=== PATIENT | female | born 1940 | race Caucasian/White ===

== ENCOUNTER 2016-03-24 08:31 | Day surgery (SDC) | payer MEDICARE, BC ==
[~2016-03-24 08:31] MED LIST: RINGERS SOLUTION,LACTATED 1,000 ML IV PRN; ceFAZolin SODIUM 2 GM in DEXTROSE 5 % IN WATER 50 ML IV PRN
--- OUTSIDE RECORDS SUMMARY | 2016-03-24 08:36 | XMS REPORT | Summary of Care ---
:1940 Author Organization [facility] Care Team Providers Name Role Phone Sarah Desai Primary Care Physician Encounter 12/18/15 - 12/18/[address] Gaye Foreman , Dir. Lab: [phone] [place] [address]- Final: Right upper quadrant pain Discharge Disposition: Home Attending Physician: Torri Araujo MD Admitting Physician: Torri Araujo MD Referring Physician: Self, Referral Vital Signs No data available for this section Problem List No data available for this section Allergies, Adverse Reactions, Alerts No data available for this section Medications No data available for this section Results No data available for this section Immunizations No data available for this section Procedures No data available for this section Social History No data available for this section Assessment and Plan No data available for this section
--- OUTSIDE RECORDS SUMMARY | 2016-03-24 08:36 | XMS REPORT | Continuity of Care Document ---
:1940 Author Organization [facility] ([facility]) Address [address] [place] [address] Phone [phone] Care Team Providers Name Role Phone Provider, No-Primary Care Primary Care Provider Unavailable Source Comments This disclosure is being made pursuant to the Care Everywhere program, applicable federal and state laws, and may not contain all informaitonavailable regarding this patient.[facility] ([facility]) Active Allergies and Adverse Reactions Allergen Noted Date Severity Reactions Comments Sulfa (Sulfonamide Antibiotics) 03/19/2016 OTHER Current Medications Prescription Sig. Disp. Refills Start Date End Date Status amLODIPine 10 mg tablet Take 10 mg by 3 01/03/2016 Active mouth daily. lisinopril 10 mg tablet Take 10 mg by 3 02/26/2016 Active mouth daily. pravastatin 40 mg tablet TK 1 T PO ONCE QD 5 03/16/2016 Active X 30 DAYS aspirin 81 mg EC tablet Take 81 mg by Active mouth daily. omeprazole (PRILOSEC) 20 Take 20 mg by Active mg enteric coated capsule mouth daily. omega-3 fatty Take 1,000 mg by Active acids-vitamin E (FISH OIL) mouth daily. 1,000 mg capsule MULTIVITAMIN/IRON/FOLIC Active ACID (COMPLETE WOMEN PO) calcium carbonate (500 mg Take 1 tablet by Active Ca) 1250 mg -vitamin D 200 mouth 2 times unit per tablet daily. 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 Hypercholesterolemia 03/19/2016 Hypertension 03/19/2016 GERD (gastroesophageal reflux disease) 03/19/2016 Most Recent Encounters Date Type Specialty Providers Description 03/19/2016 Office Visit Med Hematology and Keyanna, Ashwin E, MD Dx: [place] cell Oncology carcinoma (Primary Dx) 03/19/2016 Hospital Encounter Radiology Mal Leon MD Dx: Juancarlos cell carcinoma (Primary Dx) 03/18/2016 Telephone Radiology Carlos Molina RN 03/11[facility]: Juancarlos cell VALENTINA Briceño carcinoma (Primary Dx) 03/08/2016 Orders/Notes Cancer Center Gemma Morales RN 03/04/2016 Telephone Srg Oncology Yo Mathur Chief Comp: J Referral 03/02/2016 Lab Requisition Pathology [facility] Dx: Dermatitis Immunizations Name Dates Previously Given Next Due Influenza, unspecified 12/21/2004 Social History Tobacco Use Types Packs/Day Years Used Date Never Smoker Smokeless Tobacco: Never Used Alcohol Use Drinks/Week oz/Week Comments No Last Filed Vital Signs Vital Sign Reading Time Taken Blood Pressure 130/60 03/19/2016 1:16 PM [employer] Pulse 74 03/19/2016 1:16 PM [employer] Temperature 37 C (98.6 F) 03/19/2016 1:16 PM [employer]ER Respiratory Rate 16 03/19/2016 1:16 PM [employer] Height 1.65 m (5' 4.96") 03/19/2016 9:00 AM GRAIN E[employer] WORKER Weight 76.7 kg (169 lb 1.5 oz) 03/19/2016 1:16 PM G[employer] WORK[employer] Body Mass Index 28.17 03/19/2016 1:16 PM [employer] WORKER Oxygen Saturation 97% 03/19/2016 1:16 PM [employer] WORKER Plan of Care Date Type Specialty Providers Description 04/01/2016 Appointment Radiology Chief Comp: Patient Reported Reason For Visit 04/01/2016 Appointment Srg Oncology Allen Pham MD Chief Comp: Patient [address] [place] [address] [phone] (Fax) Health Maintenance Due Date Last Done Comments Hepatitis B Vaccine (1 of 3 - Primary Series) 1940 Tdap Vaccine 10/11/1951 Lipid Disorder Screening 1958 Td Vaccine 1958 Mammogram 1980 Colonoscopy 1990 Zoster Vaccine 2000 Osteoporosis Screening (DXA Bone Density) 2005 Pneumococcal Vaccine (1 of 2 - PCV13) 2005 Influenza Vaccine: Seasonal (#1) 09/08/2015 12/21/2004 Results from Last 3 Months DIFFERENTIAL (03/19/2016 1:29 PM) Component Value Range % Neutrophils-Auto Diff 59.4 % Neutrophils-Auto Diff 4160 9918-9592 /MM3 % Lymphocytes-Auto Diff 35.0 % Lymphocytes-Auto Diff 2450 875-3300 /MM3 % Monocytes-Auto Diff 4.0 % Monocytes-Auto Diff 280 130-860 /MM3 % Eosinophils-Auto Diff 0.6 % Eosinophils-Auto Diff 40 40-390 /MM3 % Basophils 0.9 % Basophils-Auto Diff 60 10-136 /MM3 % Immature Granulocytes-Auto Diff 0.1 % Immature Granulocytes-Auto Diff 10 /MM3 Specimen Whole Blood CBC (COMPLETE BLOOD COUNT) (03/19/2016 1:29 PM) Component Value Range WBC Count 7.0 3.7-10.5 K/MM3 RBC Count 4.36 4.00-5.20 M/MM3 Hemoglobin 13.3 11.9-15.5 g/dL Hematocrit 40 35-47 % MCV (Mean Corpuscular Volume) 91 82-99 FL MCH (Mean Corpuscular Hemoglobin) 31 25-35 PG MCHC (Mean Corpuscular Hemoglobin Concentration) 34 32-36 % Platelet Count 264 150-400 K/MM3 MPV (Mean Platelet Volume) 10.1 9.4-12.3 FL RBC Dist Width-STD 42.7 36.4-46.3 FL RBC Distrib Width 12.9 9.0-14.5 % Nucleated RBC 0 /100 WBC Specimen Whole Blood COMPREHENSIVE METABOLIC PANEL (CMP) (03/19/2016 1:29 PM) Component Value Range Sodium 140 135-145 mEq/L Potassium 4.0 3.5-5.0 mEq/L Chloride 101 95-107 mEq/L CO2 27 22-29 mEq/L Anion Gap 12 8-18 mEq/L BUN 19 10-20 mg/dL Creatinine 0.7Comment: 0.5-1.0 mg/dL Creatinine switched to enzymatic method on 06/16/2010.GFR equation switched to IDMS-traceable MDRD equation on 06/16/2010. Calculated GFR values are not valid in clinical settings where serum creatinine is changing. Glucose 141(H)Comment: 65-99 mg/dL The Expert Committee on the Diagnosis and Classification of Diabetes has defined impaired fasting glucose as greater than or equal to 100 mg/dL but less than 126 mg/dL.(Diabetes Care 28 (Suppl 1)S41,2005) Calcium 10.0 8.5-10.5 mg/dL Total Protein 7.4 6.0-8.0 g/dL Albumin 4.2 3.4-4.8 g/dL AST 22Comment: 0-32 U/L Adult reference ranges updated on 01/02/13 at 830am ALP 85 35-104 U/L Bilirubin Total 0.3 <=1.2 mg/dL ALT 24Comment: 0-33 U/L The upper limit of normal for alanine aminotransferase (ALT) reference ranges for adults is controversial with some authorities recommending limit as low as 30 U/L for males and 19 U/L for females. Th ere is increased incidence of subclinical liver disease (e.g., early steatohepatitis) in patients with ALT values in the range of 31-41 U/L for males and 20-33 U/L for females. ALT values should alway s be interpreted in conjunction with clinical history, physical examination findings, and, if applicable, data from other diagnostic tests. Calculated GFR 82 >60 mL/min/1.73 m2 Specimen Blood CHLORIDE (03/19/2016 1:29 PM) Component Value Range Chloride 101 95-107 mEq/L Specimen Blood BLOOD UREA NITROGEN (03/19/2016 1:29 PM) Component Value Range BUN 19 10-20 mg/dL Specimen Blood ASPARTATE AMINOTRANSFERASE (03/19/2016 1:29 PM) Component Value Range AST 22Comment: 0-32 U/L Adult reference ranges updated on 01/02/13 at 830am Specimen Blood ALANINE AMINOTRANSFERASE (03/19/2016 1:29 PM) Component Value Range ALT 24Comment: 0-33 U/L The upper limit of normal for alanine aminotransferase (ALT) reference ranges for adults is controversial with some authorities recommending limit as low as 30 U/L for males and 19 U/L for females. Th ere is increased incidence of subclinical liver disease (e.g., early steatohepatitis) in patients with ALT values in the range of 31-41 U/L for males and 20-33 U/L for females. ALT values should alway s be interpreted in conjunction with clinical history, physical examination findings, and, if applicable, data from other diagnostic tests. Specimen Blood SODIUM (03/19/2016 1:29 PM) Component Value Range Sodium 140 135-145 mEq/L Specimen Blood TOTAL PROTEIN (03/19/2016 1:29 PM) Component Value Range Total Protein 7.4 6.0-8.0 g/dL Specimen Blood POTASSIUM (03/19/2016 1:29 PM) Component Value Range Potassium 4.0 3.5-5.0 mEq/L Specimen Blood ALKALINE PHOSPHATASE (03/19/2016 1:29 PM) Component Value Range ALP 85 35-104 U/L Specimen Blood CREATININE (03/19/2016 1:29 PM) Component Value Range Creatinine 0.7Comment: 0.5-1.0 mg/dL Creatinine switched to enzymatic method on 06/16/2010.GFR equation switched to IDMS-traceable MDRD equation on 06/16/2010. Calculated GFR values are not valid in clinical settings where serum creatinine is changing. Creatinine switched to enzymatic method on 06/16/2010.GFR equation switched to IDMS-traceable MDRD equation on 06/16/2010. Calculated GFR values are not valid in clinical settings where serum creatinine is changing. Calculated GFR 82 >60 mL/min/1.73 m2 Specimen Blood CO2 (03/19/2016 1:29 PM) Component Value Range CO2 27 22-29 mEq/L Anion Gap 12 8-18 mEq/L Specimen Blood CALCIUM (03/19/2016 1:29 PM) Component Value Range Calcium 10.0 8.5-10.5 mg/dL Specimen Blood BILIRUBIN, TOTAL (03/19/2016 1:29 PM) Component Value Range Bilirubin Total 0.3 <=1.2 mg/dL Specimen Blood ALBUMIN (03/19/2016 1:29 PM) Component Value Range Albumin 4.2 3.4-4.8 g/dL Specimen Blood CBC WITH DIFFERENTIAL (03/19/2016 1:29 PM) Specimen Whole Blood Narrative The following orders were created for panel order CBC WITH DIFFERENTIAL. Procedure Abnormality Status --------- ------ CBC (COMPLETE BLOOD COUNT)[[id number]] Final result DIFFERENTIAL[[id number]] Final result Please view results for these tests on the individual orders. PET / CT F-18 FDG TUMOR W BODY (40200) (03/19/2016 12:23 PM) Impressions Impression: 1. No evidence of metastasis. 2. Bilateral thyroid nodules with increased FDG uptake in the left thyroid. This can be further evaluated with thyroid ultrasound. Narrative Procedure:PET / CT F-18 FDG TUMOR W BODY (91094) Indication: New Juancarlos cell carcinoma.. Radiopharmaceutical and other administered agents: 1. F-18 Fluorodeoxyglucose (FDG) 11.08 mCi IV in left antecubital fossa at 1029 hrs. 2. Total of 500 mL of dilute oral contrast was administered. 3. Alprazolam 0.25 mg PO given at 0900 hrs. Technique: Study performed in fasting state with baseline blood glucose of 88 mg/dl. Images from skull vertex to toes were acquired on a Siemens CrowdCompassgraph PET-CT with PET imaging in 3-D mode. CT was performed for attenuation correction and anatomic correlation. Reconstructed PET, CT, and fused PET-CT images were reviewed on computer monitor in coronal, sagittal, and transverse planes. FDG uptake period was 82 min. Comparison: None. Findings: Neck: Bilateral thyroid nodules with mild FDG uptake in the left thyroid with SUV max 4.7. No hypermetabolic lymphadenopathy in the neck. Chest: No concerning lung nodules. Calcified granuloma in the right lower lobe. No hypermetabolic mediastinal or axillary lymphadenopathy. Abdomen-pelvis: No hypermetabolic lesions in the liver, spleen, adrenal glands or elsewhere in the abdomen or pelvis. Small benign-appearing inguinal nodes with low-level FDG uptake bilaterally. Bones and extremities: No hypermetabolic lesions. Procedure Note Wilman, Incoming Imaging Results - Sat Mar 20, 2016 10:40 AM GRAIN E[employer] WORKER Procedure:PET / CT F-18 FDG TUMOR W BODY ([id number]) Indication: New Juancarlos cell carcinoma.. Radiopharmaceutical and other administered agents: 1. F-18 Fluorodeoxyglucose (FDG) 11.08 mCi IV in left antecubital fossa at 1029 hrs. 2. Total of 500 mL of dilute oral contrast was administered. 3. Alprazolam 0.25 mg PO given at 0900 hrs. Technique: Study performed in fasting state with baseline blood glucose of 88 mg/dl. Images from skull vertex to toes were acquired on a Siemens CrowdCompassgraph PET-CT with PET imaging in 3-D mode. CT was performed for attenuation correction and anatomic correlation. Reconstructed PET, CT, and fused PET-CT images were reviewed on computer monitor in coronal, sagittal, and transverse planes. FDG uptake period was 82 min. Comparison: None. Findings: Neck: Bilateral thyroid nodules with mild FDG uptake in the left thyroid with SUV max 4.7. No hypermetabolic lymphadenopathy in the neck. Chest: No concerning lung nodules. Calcified granuloma in the right lower lobe. No hypermetabolic mediastinal or axillary lymphadenopathy. Abdomen-pelvis: No hypermetabolic lesions in the liver, spleen, adrenal glands or elsewhere in the abdomen or pelvis. Small benign-appearing inguinal nodes with low-level FDG uptake bilaterally. Bones and extremities: No hypermetabolic lesions. IMPRESSION Impression: 1. No evidence of metastasis. 2. Bilateral thyroid nodules with increased FDG uptake in the left thyroid. This can be further evaluated with thyroid ultrasound. BLOOD GLUCOSE, BEDSIDE (03/19/2016 9:44 AM) Component Value Range Glucose, Accu-Chek 88 65-99 mg/dL Specimen Blood, capillary DERMATOPATHOLOGY EXAM (02/27/2016 9:00 AM) Component Value Range Case Report Surgical Pathology Case: [id number] Authorizing Provider:[facility], [facility] Collected: 02/27/2016 09:00 AM Pathologist: Angely Patterson MD Received:03/02/2016 09:43 AM Specimen:Skin, other, specify, L thigh Diagnosis Skin, left thigh, punch biopsy: Juancarlos cell carcinoma. I have personally reviewed this case and edited the report as necessary. Internal Consultation This case was seen in consultation with Dr. Rivera. Clinical Information Tissue source/site: Skin punch - L thigh. Pertinent clinical history and findings: 1.4 cm thickened nodule. Clinical differential diagnosis: Panniculitis vs G.A. Gross Description A.Received in formalin, in a container labeled Cristel Chan, date of , and "L thigh", is a 0.4 cm in diameter x 0.7 cm in length [place] punch biopsy.The specimen is inked, bisected and submitted entirely in A1. ATC/tkr Microscopic Description Sections of a punch biopsy show a deep dermal proliferation of reticulated islands of cells with markedly enlarged nuclei with multiple small nucleoli and inconspicuous cytoplasm. The neoplastic cells show perinuclear dot-llike staining with pankeratin, CD45 immunostain is negative. Margins are involved. Performed by:MARY CARMEN Hart, R2/tkr Immunology IHC: All controls show appropriate reactivity. This test was developed and its performance characteristics determined by the immunopathology Laboratory at the [facility]. It has not been cleared or approved by the [place] Food and Drug Administration.FDA does not require this test to go through premarket FDA review.This test is used for clinical purposes.It should not be regarded as investigational or fo r research. This laboratory is certified under the Clinical Laboratory Improvement Amendments (CLIA) as qualified to perform high complexity clinical laboratory testing. Specimen Skin - Skin, other, specify
[2016-03-24] MEDS ORDERED: RINGERS SOLUTION,LACTATED 1,000 ML IV ONE ×2 (09:20→10:50)
[2016-03-24] MEDS ORDERED: MUPIROCIN 22 APPL TUBE TP ONE ×2 (10:50→12:16)
[2016-03-24] MEDS ORDERED: BUPIVACAINE HCL/EPINEPHRINE 50 ML VIAL IJ ONE ×2 (10:50→12:16)
[2016-03-24] MEDS ORDERED: oxyCODONE HCL/ACETAMINOPHEN 1 TAB TABLET PO PRN (12:57)
[2016-03-24] MEDS ORDERED: MORPHINE SULFATE 2 MG/ML DISP.SYRIN IV PRN (12:58)
[2016-03-24] MEDS ORDERED: BISACODYL 5 MG TABLET.DR PO PRN (12:59)
[2016-03-24 15:07] VITALS: BP 114/59
--- NOTE | 2016-03-24 18:08 | OR ---
Operative Report - Dictated Report Narrative: DATE OF OPERATION: 03/24/2016 PREOPERATIVE DIAGNOSIS: Cholelithiasis and cholecystitis POSTOPERATIVE DIAGNOSIS: Cholelithiasis and cholecystitis OPERATION: Laparoscopic cholecystectomy SURGEON: DOUGIE Acharya MD ANESTHESIA Gen. endotracheal Anders Brownlee CRNA INDICATIONS FOR PROCEDURE: The patient is a 75-year-old female referred by A Lloyd [employer]. She had an episode of acute cholecystitis in January confirmed by HB scan which demonstrated nonvisualization of the gallbladder. She has multiple gallstones on ultrasound. 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 FINDINGS: Very large gallbladder with evidence of previous inflammation. Multiple gallstones. NARRATIVE OF PROCEDURE: The patient was identified preoperatively. Prior to the administration of anesthetic a multidisciplinary timeout observed. With the patient in the supine position, SCDs were placed, 2 g of intravenous Ancef administered, and general endotracheal anesthetic administered. The patient's abdomen was prepped with Betadine solution and a generous operating field outlined with 4 sterile towels. The remainder the patient was covered with a sterile disposable drape. An infraumbilical skin incision was made. Dissection was carried along the umbilical stalk until the fascia of the linea alba was encountered. This was incised. The peritoneum was then elevated and incised to allow entry into the abdomen under direct vision. A Hussan cannula was placed, and the abdomen insufflated with CO2. The laparoscopic camera was introduced and the abdomen briefly explored. Those portions of the liver, stomach, small bowel, and omentum visualized appeared normal. The apex of the gallbladder was visible. There was a large amount of stool in the right colon. Next under direct vision 3 additional working ports were inserted through separate skin incisions, one in the subxiphoid, one in the right upper quadrant , and one in the right flank. The apex of the gallbladder was retracted cephalad revealing omental adhesions to the body and neck of the gallbladder. These were carefully lysed under direct vision by combination of blunt and electrocautery dissection until the expected location of the cystic duct was identified. The cystic duct was dissected free for a sufficient distance for confident identification. It was doubly clipped and divided. The cystic artery was identified doubly clipped and divided. The gallbladder was then removed from the liver bed by retrograde electrocautery dissection. Prior to severing the last attachments of the gallbladder the liver bed was inspected and found to be hemostatic with no evidence of bile leak. The previously placed clips were seen to be intact. The right upper quadrant was suctioned clean. The last attachments of the gallbladder were divided. It was placed in an Endobag and parked in the right upper quadrant. The smaller working ports were withdrawn under direct vision to ensure entry site hemostasis. The gallbladder was removed in conjunction with the Hussan cannula. The pneumoperitoneum was allowed to escape, and after receiving a correct sponge needle and instrument count attention was turned to closing the abdomen. The fascia and peritoneum at the umbilicus were approximated with interrupted sutures of #1 Vicryl. Skin incisions were approximated with interrupted vertical mattress sutures of 4-0 nylon. The operative sites were washed and dried. Dressings of Bactroban ointment and large Band-Aids were applied to the small port sites. The umbilical incision was dressed with Bactroban ointment, 2 x 2, large Band-Aid and Medipore tape. The operative procedure was terminated at this point. The patient tolerated the anesthetic and procedure well without complication. There was no measurable blood loss. The gallbladder was submitted to pathology. 0.5% Marcaine with epinephrine was used for local anesthetic infiltration. The patient was transferred to the recovery room awake, extubated, and in stable condition. The patient remained stable throughout a period of postoperative observation. She was able to tolerate po intake and was up without assistance. Her pain was controlled with PO Percocet. Her dressings remained dry. I reviewed the operative findings with her and her daughters and she was given copies of the photographs which appear in the medical record. The patient was discharged home with instructions not to lift and not to drive. She is to leave the current dressing dry and intact for 48 hours, but then may shower and change the dressing daily or as needed. She was given phone numbers to call when necessary signs of wound infection or hematoma. The patient was given a prescription for Percocet 5/325 mg #30 one or 2 PO Q4-6hrs prn pain. A return office appointment was made for 03/31/2016. Reviewed and electronically signed
== END 2016-03-24 08:32 | disposition home or self-care (01) ==
LOC: AMB 08:31
PROVIDERS: ATTEND Surgery
PROC: 0FT44ZZ Resection of Gallbladder, Percutaneous Endoscopic Approach (ICD-10-PCS; principal; 2016-03-24 10:00)
DX: K80.12 Calculus of gallbladder with acute and chronic cholecystitis without obstruction (principal); I10 Essential (primary) hypertension; K21.9 Gastro-esophageal reflux disease without esophagitis; E78.5 Hyperlipidemia, unspecified; Z68.28 Body mass index [BMI] 28.0-28.9, adult